=== PATIENT | male | born 1940 | race Caucasian/White ===

== ENCOUNTER 2018-07-21 08:41 | Emergency (ER) | payer MEDICARE, BC ==
[~2018-07-21] VITALS: Ht 170.2 cm; Wt 77.1 kg
[2018-07-21] MEDS ORDERED: ESCI20TA PO (08:50)
[2018-07-21] MEDS ORDERED: ASPI81TA31 PO (08:50)
[2018-07-21] MEDS ORDERED: MULT-1217 PO (08:50)
[2018-07-21] MEDS ORDERED: GUAI600T53 PO (09:04)
[2018-07-21] MEDS ORDERED: SENN8.6T22 PO (09:04)
[2018-07-21] MEDS ORDERED: CETI-102 PO (09:04)
[2018-07-21] MEDS ORDERED: ACET325C5 PO (09:04)
[2018-07-21] MEDS ORDERED: ASCO500C18 PO (09:04)
[2018-07-21] MEDS ORDERED: FOLI1TAB16 PO (09:04)
[2018-07-21] MEDS ORDERED: DOCU-141 PO (09:04)
[2018-07-21] MEDS ORDERED: ATOR40TA PO (09:04)
[2018-07-21] MEDS ORDERED: CODE473L3 PO (09:04)
[2018-07-21] MEDS ORDERED: NAPR250T4 PO (09:04)
[2018-07-21] MEDS ORDERED: HYDR-552 PO (09:04)
--- NOTE | 2018-07-21 09:57 | NUR ---
Patient discharged to home in stable conditon. Written and verbal after care instructions given to patient and patient's private caregiver. Patient and caregiver verbalized understanding of instructions.
[2018-07-21] MEDS ORDERED: LIDOCAINE HCL 1% 20 ML VIAL IJ ONE (10:00)
== END 2018-07-21 09:59 | disposition home or self-care (01) ==
LOC: ER 08:41
DX: S01.01XA Laceration without foreign body of scalp, initial encounter (principal); R05 Cough; F17.200 Nicotine dependence, unspecified, uncomplicated; W22.8XXA Striking against or struck by other objects, initial encounter; Y93.89 Activity, other specified; Y92.89 Other specified places as the place of occurrence of the external cause; Y99.8 Other external cause status
CPT/HCPCS: 70450; A4217; A4663; J3490